=== PATIENT | female | born 1990 | race American Indian/Alaskan Native ===

== ENCOUNTER 2019-04-04 21:51 | Inpatient (IN) | payer OTHER ==
[2019-04-04] MEDS ORDERED: SODIUM CHLORIDE 0.9% 1000 ML IV SOLN IV ONE (22:16)
[2019-04-04] MEDS ORDERED: D5W/0.9% NACL 1,000 ML IV ONE (22:30)
--- NOTE | 2019-04-04 22:38 | Emergency Department Report ---
<MARIOLA ALCANTAR - Last Filed: 04/05/19 04:05> ED General Adult HPI - General Chief complaint: Altered Mental Status Stated complaint: HYPOGLYCEMIA Time Seen by Provider: 04/04/19 22:32 Source: family, EMS Mode of arrival: Wheelchair Limitations: Altered Mental Status - History of Present Illness Initial comments: Ms Godoy is a 28-year-old female who presents via EMS who were called by family for ams after 3 day duration of flu like symptoms, n/v, fever, bodyache, pt blood glucose [id number]/dl [place], increased to 155mg/dl after iv d50w in field. pt states 3 days hx of h/v/d, malaise, cough, generalized bodyache. pt denies med hx , states she feels better now but still unable to tolerate po intake. Onset/Timin -: days(s) Location: head, back, abdomen, upper extremity, lower extremity Severity scale (0 -10): 5 Quality: aching Consistency: constant Improves with: none Worsens with: eating, movement Associated Symptoms: cough, fever/chills, loss of appetite, malaise, nausea/vomiting, weakness Treatments Prior to Arrival: none - Related Data Allergies Allergy/AdvReac Type Severity Reaction Status Date / Time No Known Allergies Allergy Verified 04/04/19 23:08 ED Review of Systems Constitutional: chills, fever, malaise, weakness Eyes: denies: eye pain, eye discharge, vision change ENT: congestion. denies: ear pain, throat pain Respiratory: cough. denies: shortness of breath, wheezing Cardiovascular: denies: chest pain, palpitations Endocrine: no symptoms reported Gastrointestinal: nausea, vomiting, diarrhea. denies: constipation, melena Genitourinary: denies: urgency, dysuria, discharge Musculoskeletal: denies: back pain, joint swelling, arthralgia Skin: denies: rash, lesions Neurological: headache, weakness. denies: numbness, paresthesias, confusion Psychiatric: denies: anxiety, depression Hematological/Lymphatic: denies: easy bleeding, easy bruising ED Past Medical Hx - Social History Smoking Status: Never Smoker ED Physical Exam - General Limitations: Altered Mental Status General appearance: alert - Head Head exam: Present: normal inspection - Eye Eye exam: Present: normal appearance, PERRL, EOMI Pupils: Present: normal accommodation - ENT ENT exam: Present: mucous membranes moist - Neck Neck exam: Present: normal inspection - Respiratory Respiratory exam: Present: normal lung sounds bilaterally. Absent: respiratory distress - Cardiovascular Cardiovascular Exam: Present: normal rhythm, tachycardia, normal heart sounds. Absent: systolic murmur, diastolic murmur, rubs, gallop - GI/Abdominal GI/Abdominal exam: Present: soft, normal bowel sounds. Absent: distended, tenderness, guarding, rebound, rigid, bruit, hernia - Rectal Rectal exam: Present: deferred - External exam: Present: other (deferred ) - Extremities Exam Extremities exam: Present: normal inspection, full ROM, normal capillary refill. Absent: tenderness, pedal edema - Back Exam Back exam: Present: normal inspection, full ROM. Absent: tenderness, CVA tenderness (R), CVA tenderness (L), muscle spasm, vertebral tenderness, rash noted - Neurological Exam Neurological exam: Present: alert, oriented X3, CN II-XII intact, motor sensory deficit, reflexes normal. Absent: normal gait - Psychiatric Psychiatric exam: Present: normal affect, flat affect - Skin Skin exam: Present: warm, dry, intact, normal color. Absent: rash ED Course - Reevaluation(s) Reevaluation #1: h/h 6.7/20.4 pt type and crossmatched will transfuse 2 units of prbc, ct abd pe lvis pending, will admit to hospitalist after ct results or source confirmation. 04/05/19 00:59 ED Medical Decision Making - Lab Data Result diagrams: 04/04/19 23:29 04/04/19 23:29 Labs 04/04/19 04/04/19 04/04/19 22:00 22:19 23:29 WBC 6.0 RBC 3.02 L Hgb 6.4 L Hct 20.7 L MCV 69 L MCH 21 L MCHC 31 RDW 17.4 H Plt Count 253 Lymph % (Auto) 16.7 Drew % (Auto) 12.4 H Eos % (Auto) 3.1 Baso % (Auto) 0.6 Lymph # 1.0 L Drew # 0.7 Eos # 0.2 Baso # 0.0 Seg Neutrophils % 67.2 Seg Neutrophils # 4.0 VBG pH Sodium Potassium Chloride Carbon Dioxide Anion Gap BUN Creatinine Estimated GFR BUN/Creatinine Ratio Glucose POC Glucose 140 H Lactic Acid Calcium Total Bilirubin AST ALT Alkaline Phosphatase Total Protein Albumin Albumin/Globulin Ratio Lipase HCG, Qual Urine Color Urine Turbidity Urine pH Ur Specific Lamar Urine Protein Urine Glucose (UA) Urine Ketones Urine Blood Urine Nitrite Urine Bilirubin Urine Urobilinogen Ur Leukocyte Esterase Urine WBC (Auto) Urine RBC (Auto) U Epithel Cells (Auto) Urine Bacteria (Auto) Hyaline Casts Urine Mucus Urine Opiates Screen Urine Methadone Screen Ur Barbiturates Screen Ur Phencyclidine Scrn Ur Amphetamines Screen U Benzodiazepines Scrn Urine Cocaine Screen U Marijuana (THC) Screen Drugs of Abuse Note Influenza A (Rapid) Negative Influenza B (Rapid) Negative 04/04/19 04/04/19 04/04/19 23:29 23:29 23:29 WBC RBC Hgb Hct MCV MCH MCHC RDW Plt Count Lymph % (Auto) Drew % (Auto) Eos % (Auto) Baso % (Auto) Lymph # Drew # Eos # Baso # Seg Neutrophils % Seg Neutrophils # VBG pH Sodium 134 L Potassium 3.9 Chloride 106.9 Carbon Dioxide 16 L Anion Gap 15 BUN 7 Creatinine 0.6 L Estimated GFR > 60 BUN/Creatinine Ratio 12 Glucose 210 H POC Glucose Lactic Acid 4.60 H* Calcium 7.4 L Total Bilirubin 0.60 AST 74 H ALT 16 Alkaline Phosphatase 58 Total Protein 6.7 Albumin 2.8 L Albumin/Globulin Ratio 0.7 Lipase HCG, Qual Negative Urine Color Urine Turbidity Urine pH Ur Specific Lamar Urine Protein Urine Glucose (UA) Urine Ketones Urine Blood Urine Nitrite Urine Bilirubin Urine Urobilinogen Ur Leukocyte Esterase Urine WBC (Auto) Urine RBC (Auto) U Epithel Cells (Auto) Urine Bacteria (Auto) Hyaline Casts Urine Mucus Urine Opiates Screen Urine Methadone Screen Ur Barbiturates Screen Ur Phencyclidine Scrn Ur Amphetamines Screen U Benzodiazepines Scrn Urine Cocaine Screen U Marijuana (THC) Screen Drugs of Abuse Note Influenza A (Rapid) Influenza B (Rapid) 04/04/19 04/04/19 04/05/19 23:29 23:29 00:05 WBC RBC Hgb Hct MCV MCH MCHC RDW Plt Count Lymph % (Auto) Drew % (Auto) Eos % (Auto) Baso % (Auto) Lymph # Drew # Eos # Baso # Seg Neutrophils % Seg Neutrophils # VBG pH 7.259 L Sodium Potassium Chloride Carbon Dioxide Anion Gap BUN Creatinine Estimated GFR BUN/Creatinine Ratio Glucose POC Glucose 321 H Lactic Acid Calcium Total Bilirubin AST ALT Alkaline Phosphatase Total Protein Albumin Albumin/Globulin Ratio Lipase 19 HCG, Qual Urine Color Urine Turbidity Urine pH Ur Specific Lamar Urine Protein Urine Glucose (UA) Urine Ketones Urine Blood Urine Nitrite Urine Bilirubin Urine Urobilinogen Ur Leukocyte Esterase Urine WBC (Auto) Urine RBC (Auto) U Epithel Cells (Auto) Urine Bacteria (Auto) Hyaline Casts Urine Mucus Urine Opiates Screen Urine Methadone Screen Ur Barbiturates Screen Ur Phencyclidine Scrn Ur Amphetamines Screen U Benzodiazepines Scrn Urine Cocaine Screen U Marijuana (THC) Screen Drugs of Abuse Note Influenza A (Rapid) Influenza B (Rapid) 04/05/19 04/05/19 04/05/19 01:33 02:04 02:04 WBC RBC Hgb Hct MCV MCH MCHC RDW Plt Count Lymph % (Auto) Drew % (Auto) Eos % (Auto) Baso % (Auto) Lymph # Drew # Eos # Baso # Seg Neutrophils % Seg Neutrophils # VBG pH Sodium Potassium Chloride Carbon Dioxide Anion Gap BUN Creatinine Estimated GFR BUN/Creatinine Ratio Glucose POC Glucose Lactic Acid 2.10 H* Calcium Total Bilirubin AST ALT Alkaline Phosphatase Total Protein Albumin Albumin/Globulin Ratio Lipase HCG, Qual Urine Color Yellow Urine Turbidity Slightly-cloudy Urine pH 6.0 Ur Specific Lamar 1.018 Urine Protein 100 mg/dl Urine Glucose (UA) 150 Urine Ketones 20 Urine Blood Lg Urine Nitrite Neg Urine Bilirubin Neg Urine Urobilinogen < 2.0 Ur Leukocyte Esterase Neg Urine WBC (Auto) 2.0 Urine RBC (Auto) 7.0 U Epithel Cells (Auto) < 1.0 Urine Bacteria (Auto) 1+ Hyaline Casts 1 Urine Mucus Few Urine Opiates Screen Presumptive negative Urine Methadone Screen Presumptive negative Ur Barbiturates Screen Presumptive negative Ur Phencyclidine Scrn Presumptive negative Ur Amphetamines Screen Presumptive negative U Benzodiazepines Scrn Presumptive negative Urine Cocaine Screen Presumptive negative U Marijuana (THC) Screen Presumptive positive Drugs of Abuse Note Disclamer Influenza A (Rapid) Influenza B (Rapid) 04/05/19 03:19 WBC RBC Hgb Hct MCV MCH MCHC RDW Plt Count Lymph % (Auto) Drew % (Auto) Eos % (Auto) Baso % (Auto) Lymph # Drew # Eos # Baso # Seg Neutrophils % Seg Neutrophils # VBG pH Sodium Potassium Chloride Carbon Dioxide Anion Gap BUN Creatinine Estimated GFR BUN/Creatinine Ratio Glucose POC Glucose Lactic Acid 1.00 Calcium Total Bilirubin AST ALT Alkaline Phosphatase Total Protein Albumin Albumin/Globulin Ratio Lipase HCG, Qual Urine Color Urine Turbidity Urine pH Ur Specific Lamar Urine Protein Urine Glucose (UA) Urine Ketones Urine Blood Urine Nitrite Urine Bilirubin Urine Urobilinogen Ur Leukocyte Esterase Urine WBC (Auto) Urine RBC (Auto) U Epithel Cells (Auto) Urine Bacteria (Auto) Hyaline Casts Urine Mucus Urine Opiates Screen Urine Methadone Screen Ur Barbiturates Screen Ur Phencyclidine Scrn Ur Amphetamines Screen U Benzodiazepines Scrn Urine Cocaine Screen U Marijuana (THC) Screen Drugs of Abuse Note Influenza A (Rapid) Influenza B (Rapid) - Medical Decision Making pt condition is improved, mild lethargy,reponds to verbal stimuli, ct head: normal, ct abd pelvis :cannot rule out choleycysitis, recommend US RUQ, ordered and pending, cxr: normal no infiltrates no opacities, labs h/h: 6.4/20.7: pt pending completion of blood transfusion of 2 units prbc, wbc are normal, abg: co2 7.25, cmp: glucose : 142, UA: normal , lactic acid: initial 4.60, repeat 2.4, and now 1.0, pt fever: 102.5 after tylenol, and ivfs. ressucitaiton fluids competed + 1 additional leader. will maintain ivfs at 150 cc /hr pt for LP via ED attending , consulted hospitalist, recommend call back after LP and ID consult. ID consuled,. pt care hand off to Dr Mancia. ED Disposition Clinical Impression: Hypoglycemia Fever Qualifiers: Fever type: unspecified Qualified Code(s): R50.9 - Fever, unspecified Altered mental state Qualifiers: Altered mental status type: unspecified Qualified Code(s): R41.82 - Altered mental status, unspecified Sepsis Qualifiers: Sepsis type: sepsis due to unspecified organism Sepsis acute organ dysfunction status: without acute organ dysfunction Qualified Code(s): A41.9 - Sepsis, unspecified organism Hypotension Qualifiers: Hypotension type: unspecified hypotension type Qualified Code(s): I95.9 - Hypotension, unspecified Anemia Qualifiers: Anemia type: unspecified type Qualified Code(s): D64.9 - Anemia, unspecified Disposition: OP ADMIT IP TO THIS HOSP Condition: Critical <RAFEEDMACIE III,ZUHAIR Silver - Last Filed: 04/05/19 22:45> ED Review of Systems ROS: Stated complaint: HYPOGLYCEMIA Other details as noted in HPI ED Past Medical Hx - Past Medical History Previous Medical History?: No - Surgical History Past Surgical History?: No - Family History Family history: no significant - Social History Smoking Status: Never Smoker Substance Use Type: Marijuana ED Course Vital Signs 04/04/19 04/04/19 04/04/19 22:12 22:13 23:28 Temperature 103 F H Pulse Rate 131 H Respiratory 22 Rate Blood Pressure 55/39 Blood Pressure 120/78 [Left] O2 Sat by Pulse 100 100 Oximetry 04/04/19 04/04/19 04/05/19 23:30 23:59 00:00 Temperature Pulse Rate 115 H 113 H Respiratory 20 17 Rate Blood Pressure 112/46 Blood Pressure [Left] O2 Sat by Pulse 100 100 100 Oximetry 04/05/19 04/05/19 04/05/19 00:01 00:10 00:30 Temperature 103.0 F H Pulse Rate 113 H 112 H Respiratory 20 23 Rate Blood Pressure 112/46 110/64 Blood Pressure [Left] O2 Sat by Pulse 100 100 Oximetry 04/05/19 04/05/19 04/05/19 01:00 01:30 02:00 Temperature Pulse Rate 107 H Respiratory 21 Rate Blood Pressure 108/62 110/61 103/62 Blood Pressure [Left] O2 Sat by Pulse 100 99 Oximetry 04/05/19 04/05/19 04/05/19 02:05 02:30 03:00 Temperature Pulse Rate 104 H 100 H Respiratory 15 Rate Blood Pressure 99/59 102/66 Blood Pressure [Left] O2 Sat by Pulse 98 100 Oximetry 04/05/19 04/05/19 04/05/19 03:24 04:15 04:30 Temperature 100.3 F H Pulse Rate 103 H 100 H Respiratory 9 L Rate Blood Pressure 103/61 100/61 Blood Pressure [Left] O2 Sat by Pulse 100 Oximetry 04/05/19 04/05/19 04/05/19 05:00 05:30 06:00 Temperature Pulse Rate 109 H 104 H 106 H Respiratory 21 23 25 H Rate Blood Pressure 104/62 101/59 109/65 Blood Pressure [Left] O2 Sat by Pulse 99 100 Oximetry 04/05/19 04/05/1919 06:30 07:00 07:11 Temperature Pulse Rate 104 H 108 H 109 H Respiratory 28 H 19 23 Rate Blood Pressure 102/62 104/62 104/62 Blood Pressure [Left] O2 Sat by Pulse 100 Oximetry 04/05/19 04/05/19 04/05/19 07:21 07:31 07:41 Temperature Pulse Rate 106 H Respiratory 21 25 H Rate Blood Pressure 104/62 108/57 108/57 Blood Pressure [Left] O2 Sat by Pulse 100 98 100 Oximetry 04/05/19 04/05/19 04/05/19 07:51 08:00 08:09 Temperature 99.4 F Pulse Rate 105 H 105 H 107 H Respiratory 20 18 17 Rate Blood Pressure 108/57 111/74 Blood Pressure 108/57 [Left] O2 Sat by Pulse 100 100 98 Oximetry 04/05/19 04/05/19 04/05/19 08:11 08:21 08:30 Temperature Pulse Rate 104 H 105 H Respiratory 21 28 H 16 Rate Blood Pressure 111/74 111/74 101/64 Blood Pressure [Left] O2 Sat by Pulse 100 100 100 Oximetry 04/05/19 04/05/19 04/05/19 08:41 08:51 09:00 Temperature Pulse Rate 109 H 111 H 105 H Respiratory 19 19 26 H Rate Blood Pressure 101/64 101/64 101/62 Blood Pressure [Left] O2 Sat by Pulse 100 99 100 Oximetry 04/05/19 04/05/19 04/05/19 09:11 09:21 09:30 Temperature Pulse Rate 104 H 104 H 101 H Respiratory 20 25 H 19 Rate Blood Pressure 101/62 101/64 98/65 Blood Pressure [Left] O2 Sat by Pulse 100 100 Oximetry 04/05/19 04/05/19 04/05/19 09:41 09:51 10:00 Temperature Pulse Rate 105 H 102 H Respiratory 13 20 Rate Blood Pressure 98/65 98/65 98/65 Blood Pressure [Left] O2 Sat by Pulse 96 97 97 Oximetry 04/05/19 10:26 Temperature 98.9 F Pulse Rate 100 H Respiratory 12 Rate Blood Pressure 83/46 Blood Pressure [Left] O2 Sat by Pulse 100 Oximetry - Reevaluation(s) Reevaluation #2: Due to the patient's symptoms, Patient currently has a fever of unknown origin as well as altered mental status, patient will require a LP. Consent received from the patient's mother. LP done without complications. See procedure note. I examined the patient. Patient is altered. 04/05/19 03:00 - Consultations Consultation #1: Hospitalist consult for admission. Hospitalist admit patient. 04/05/19 04:05 Consultation #2: ID consult. This case with Dr. Jennings. Dr. Jennings agrees with admission and that the LP was done. Dr. Jennings recommends ceftriaxone 2 g IV every 12, vancomycin 1 g IV every 12 and acyclovir 10 mg/kg IV every 8. 04/05/19 04:17 - Lumbar Puncture Consent Obtained: verbal consent, written consent, emergent situation Time Out Performed: Yes Indication for Procedure: fever work up, change in mental status Patient Position: left lateral decubitus Skin Prep: Povidone-Iodine 1% Local Anesthetic Used: Lidocaine 1% Spinal Needle Gauge: 20G Spinal Needle Length: 3.5in Interspace Used: L4-L5 Opening Pressure (cmH20): 6 Fluid Initially Obtained: clear Complications: none Patient Tolerated Procedure: well, no complications Additional Comments: lp done without complication. clear fluid with opening pressure of 6. pt will remain flat for 30 minutes. pressure applied to site. sterile bandage applied. ED Medical Decision Making - Lab Data Result diagrams: 04/04/19 23:29 04/04/19 23:29 - Radiology Data Radiology results: report reviewed, image reviewed No acute findings on abdominal CT except for fluid around the gallbladder. Head CT negative for acute findings. CT HEAD WITHOUT CONTRAST INDICATION : Altered mental status. TECHNIQUE: Axial, coronal and sagittal CT imaging was performed from the skull apex through the skull base without contrast. All CT scans at this location are performed using CT dose reduction for ALARA by means of automated exposure control. COMPARISON: None available. FINDINGS: PARENCHYMA: No mass, midline shift, hemorrhage, extraaxial collection or acute territorial infarction. VENTRICLES: Symmetric and normal in size. SOFT TISSUES: Soft tissues including the orbits appear normal. BONES: No acute osseous abnormality. SINUSES: Generalized because thickening is seen throughout the sinuses, especially along the ethmoid air cells and the nasal cavity. There is underdevelopment of the frontal sinuses. ADDITIONAL FINDINGS: None. IMPRESSION: 1. No acute intracranial abnormality. 2. Additional findings as above. ULTRASOUND ABDOMEN, LIMITED (RIGHT UPPER QUADRANT) INDICATION: Right upper quadrant pain. Possible cholecystitis. Previous abnormal CT of the abdomen and pelvis. COMPARISON: CT abdomen and pelvis with contrast from earlier today. FINDINGS: Pancreas: Visualized portion shows no significant abnormality. Liver: No significant abnormality. Gallbladder: No significant abnormality. Sonographic Beck's sign: Negative. Bile ducts: No significant abnormality. Common Bile Duct measures 3 mm. Free fluid: None. Additional Findings: None. IMPRESSION: 1. No sonographic abnormality of the right upper quadrant. CT ABDOMEN AND PELVIS WITH CONTRAST INDICATION: Altered mental status. Abdominal pain. COMPARISON: No relevant prior imaging study available. TECHNIQUE: Axial, coronal and sagittal CT imaging of the abdomen and pelvis was performed after injection of 100 mL Omnipaque [address] scans at this location are performed using CT dose reduction for ALARA by means of automated exposure control. FINDINGS: LOWER CHEST: There is probable bibasilar atelectasis. No additional significant abnormality. LIVER: No significant abnormality. BILIARY: There is a questionable small amount of pericholecystic fluid without visualization of stones or other evidence of acute cholecystitis. No biliary ductal dilatation. PANCREAS: No significant abnormality. SPLEEN: No significant abnormality. ADRENALS: No significant abnormality. KIDNEYS AND URETERS: No significant abnormality. GI TRACT: No significant abnormality of the stomach, small bowel or colon. Unremarkable appendix. PERITONEUM: No free fluid. No free air. No fluid collection. LYMPH NODES: No significant adenopathy. VASCULATURE: No significant abnormality. URINARY BLADDER: No significant abnormality. REPRODUCTIVE ORGANS: No significant abnormality. ADDITIONAL FINDINGS: None. SKELETAL SYSTEM: No significant abnormality. IMPRESSION: 1. Questionable small amount of pericholecystic fluid without visualization of gallstones or additional CT evidence of acute cholecystitis. 2. No other acute abnormality of the abdomen or pelvis. - Differential Diagnosis fever, altered mental status, meningitis, sepsis, hypotension Critical Care Time: Yes Critical care time in (mins) excluding proc time.: 65 Critical care attestation.: If time is entered above; I have spent that time in minutes in the direct care of this critically ill patient, excluding procedure time. Critical Care Time: 65 minutes ED Disposition Is pt being admited?: Yes Does the pt Need Aspirin: No Time of Disposition: 04:22
[2019-04-04] MEDS ORDERED: ONDANSETRON 4 MG/2 ML INJ IV ONE (22:50)
[2019-04-04] MEDS ORDERED: ACETAMINOPHEN 500 MG TAB ONE (22:53)
[2019-04-04] MEDS ORDERED: D5W/0.9% NACL 1,000 ML IV SCH (23:00)
[2019-04-04] MEDS: ACETAMINOPHEN 325 MG TAB PO ONE (23:06)
[2019-04-04] MEDS ORDERED: LIDOCAINE-MPF (1%) 10 MG/1 ML VIAL 5 ML INFILTRATI ONE (23:34)
[2019-04-05 00:13] LABS: Basophils % (Auto) 0.6 % (0.0-1.8); Eosinophils # (Auto) 0.2 K/mm3 (0.0-0.4); Eosinophils % (Auto) 3.1 % (0.0-4.3); Hematocrit 20.7 % (30.3-42.9); Hemoglobin 6.4 gm/dl (10.1-14.3); Lymphocytes % (Auto) 16.7 % (13.4-35.0); Mean Corpuscular HGB Conc 31 % (30-34); Monocytes # (Auto) 0.7 K/mm3 (0.0-0.8); Monocytes % (Auto) 12.4 % (0.0-7.3); Platelet Count 253 K/mm3 (140-440); Red Blood Count 3.02 M/mm3 (3.65-5.03); Red Cell Distribution Width 17.4 % (13.2-15.2)
[2019-04-05 00:14] LABS: Alanine Aminotransferase 16 units/L (7-56); Albumin 2.8 g/dL (3.9-5); BUN/Creatinine Ratio 12; Blood Urea Nitrogen 7 mg/dL (7-17); Calcium 7.4 mg/dL (8.4-10.2); Hemolysis Index 0
[2019-04-05] MEDS ORDERED: SODIUM CHLORIDE 0.9% 1000 ML 1,000 ML IV ONE (00:31)
[2019-04-05 00:35] LABS: Mean Corpuscular Volume 69 fl (79-97)
--- NOTE | 2019-04-05 00:46 | XRay Report ---
CHEST 1 VIEW 04/05/2019 12:10 AM INDICATION / CLINICAL INFORMATION: fever, hypotension. COMPARISON: None available. FINDINGS: SUPPORT DEVICES: None. HEART / MEDIASTINUM: No significant abnormality. LUNGS / PLEURA: No significant pulmonary or pleural abnormality. No pneumothorax. ADDITIONAL FINDINGS: No significant additional findings. IMPRESSION: 1. No acute abnormality of the chest. Signer Name: Weston Levine MD Signed: 04/05/2019 12:42 AM Workstation Name: [id number]
[2019-04-05] MEDS ORDERED: SODIUM CHLORIDE 0.9% 500 ML 500 ML IV ONE ×2 (00:56→12:00)
[2019-04-05] MEDS ORDERED: diphenhydrAMINE 50 MG/ML VIAL IV ONE (00:58)
--- NOTE | 2019-04-05 02:00 | Cat Scan Report ---
CT HEAD WITHOUT CONTRAST INDICATION : Altered mental status. TECHNIQUE: Axial, coronal and sagittal CT imaging was performed from the skull apex through the skul l base without contrast. All CT scans at this location are performed using CT dose reduction for ALA RA by means of automated exposure control. COMPARISON: None available. FINDINGS: PARENCHYMA: No mass, midline shift, hemorrhage, extraaxial collection or acute territorial infarctio n. VENTRICLES: Symmetric and normal in size. SOFT TISSUES: Soft tissues including the orbits appear normal. BONES: No acute osseous abnormality. SINUSES: Generalized because thickening is seen throughout the sinuses, especially along the ethmoid air cells and the nasal cavity. There is underdevelopment of the frontal sinuses. ADDITIONAL FINDINGS: None. IMPRESSION: 1. No acute intracranial abnormality. 2. Additional findings as above. Signer Name: Weston Levine MD Signed: 04/05/2019 1:55 AM Workstation Name: [id number]
--- NOTE | 2019-04-05 02:05 | Cat Scan Report ---
CT ABDOMEN AND PELVIS WITH CONTRAST INDICATION: Altered mental status. Abdominal pain. COMPARISON: No relevant prior imaging study available. TECHNIQUE: Axial, coronal and sagittal CT imaging of the abdomen and pelvis was performed after inje ction of 100 mL Omnipaque [address] scans at this location are performed using CT dose re duction for ALARA by means of automated exposure control. FINDINGS: LOWER CHEST: There is probable bibasilar atelectasis. No additional significant abnormality. LIVER: No significant abnormality. BILIARY: There is a questionable small amount of pericholecystic fluid without visualization of stone s or other evidence of acute cholecystitis. No biliary ductal dilatation. PANCREAS: No significant abnormality. SPLEEN: No significant abnormality. ADRENALS: No significant abnormality. KIDNEYS AND URETERS: No significant abnormality. GI TRACT: No significant abnormality of the stomach, small bowel or colon. Unremarkable appendix. PERITONEUM: No free fluid. No free air. No fluid collection. LYMPH NODES: No significant adenopathy. VASCULATURE: No significant abnormality. URINARY BLADDER: No significant abnormality. REPRODUCTIVE ORGANS: No significant abnormality. ADDITIONAL FINDINGS: None. SKELETAL SYSTEM: No significant abnormality. IMPRESSION: 1. Questionable small amount of pericholecystic fluid without visualization of gallstones or addition al CT evidence of acute cholecystitis. 2. No other acute abnormality of the abdomen or pelvis. Signer Name: Weston Levine MD Signed: 04/05/2019 2:01 AM Workstation Name: [id number]
[2019-04-05 03:17] LABS: Amphetamine Screen,Urine PRESUMPTIVE NEGATIVE; Benzodiazepines Screen,Urine PRESUMPTIVE NEGATIVE; Cocaine Screen,Urine PRESUMPTIVE NEGATIVE; Methadone Screen,Urine PRESUMPTIVE NEGATIVE; Opiate Screen,Urine PRESUMPTIVE NEGATIVE
[2019-04-05 03:18] LABS: Bacteria,Urine 1+ /HPF (Negative); Bilirubin,Urine NEG (Negative); Blood,Urine LG (Negative); Color,Urine Yellow (Yellow); Hyaline Casts,Urine 1 /LPF; Mucus,Urine FEW /HPF; Urobilinogen,Urine < 2.0 mg/dL (<2.0)
[2019-04-05 03:42] LABS: Cannabinoid Screen,Urine PRESUMPTIVE POSITIVE
[2019-04-05] MEDS ORDERED: VANCOMYCIN/NS 1 GM/250 ML 1 GM/250 ML BAG IV ONE (04:20)
[2019-04-05] MEDS ORDERED: ONDANSETRON 4 MG/2 ML INJ ONE (05:14)
[2019-04-05 05:48] LABS: Glucose,CSF 69 mg/dL
[2019-04-05 06:40] LABS: Appearance,CSF Clear
[2019-04-05 06:44] LABS: Total Cells Counted 33 /mm3
[2019-04-05 06:45] LABS: Basophils CSF 0 %; Red Blood Cell,CSF 41 /mm3 (0-0); White Blood Cell,CSF 14 /mm3 (1-10)
[2019-04-05] MEDS: ACYCLOVIR IV SCH ×3 (06:48→21:06)
[2019-04-05] MEDS: SODIUM CHLORIDE 0.9% IV SCH ×3 (06:48→21:06)
--- NOTE | 2019-04-05 07:16 | Ultrasound Report ---
ULTRASOUND ABDOMEN, LIMITED (RIGHT UPPER QUADRANT) INDICATION: Right upper quadrant pain. Possible cholecystitis. Previous abnormal CT of the abdomen and pelvis. COMPARISON: CT abdomen and pelvis with contrast from earlier today. FINDINGS: Pancreas: Visualized portion shows no significant abnormality. Liver: No significant abnormality. Gallbladder: No significant abnormality. Sonographic Beck's sign: Negative. Bile ducts: No significant abnormality. Common Bile Duct measures 3 mm. Free fluid: None. Additional Findings: None. IMPRESSION: 1. No sonographic abnormality of the right upper quadrant. Signer Name: Weston Levine MD Signed: 04/05/2019 7:12 AM Workstation Name: [email or web address]
[2019-04-05] MEDS ORDERED: DEXTROSE 50% IN WATER (25GM) 50 ML SYRINGE IV ONE ×2 (08:37→08:40)
--- NOTE | 2019-04-05 08:39 | Emergency Department Report ---
Blank Doc - Documentation Documentation: Nurse reports the patient's blood sugars 48. Provider ordered at 1 amp of D50 and to recheck blood sugar
[2019-04-05] MEDS ORDERED: ONDANSETRON 4 MG/2 ML INJ IV PRN (09:29)
[2019-04-05] MEDS ORDERED: oxyCODONE /ACETAMINOPHEN 5-325MG TAB PO PRN (09:29)
[2019-04-05] MEDS ORDERED: SODIUM CHLORIDE 0.9% 1000 ML 1,000 ML IV SCH (09:30)
[2019-04-05] MEDS ORDERED: DEXTROSE 50% IN WATER (25GM) 50 ML SYRINGE IV PRN (09:39)
[2019-04-05] MEDS ORDERED: cefTRIAXone/NS 2 GM/100 ML 2 GM/100 ML BAG IV SCH (10:00)
[2019-04-05] MEDS ORDERED: VANCOMYCIN PHARMACY TO DOSE IV SCH (10:00)
[2019-04-05] MEDS ORDERED: cefTRIAXone/NS 1 GM/50 ML IVPB IV ONE (11:00)
[2019-04-05] MEDS ORDERED: INSULIN LISPRO 100 UNIT/ML SUB-Q SCH (11:30)
--- NOTE | 2019-04-05 11:52 | History and Physical Report ---
History of Present Illness Date of examination: 04/05/19 Date of admission: 04/05/19 07:51 Chief complaint: AMS per mother History of present illness: Ms Godoy is a 28-year-old female who presented to the ED via EMS for ams after 3 days h/o of flu like symptoms. Pt was unable to provide hx due to AMS, so hx was obtained from the mother. It was reported that she has been having n/v, fever with chills, poor oral intake and generalized weakness with bodyaches for 3 days. Per EMS, her blood glucose [id number] on arrival and increased to 155mg/dl after iv d50w was given. Of note, the mother reported that she usually has heavy periods and she's currently menstruating. Past History Past Medical History: No medical history Past Surgical History: No surgical history Social history: no significant social history (negative for tobacco, alcohol or illicit drug use) Family history: hypertension (parents) Medications and Allergies Allergies Allergy/AdvReac Type Severity Reaction Status Date / Time No Known Allergies Allergy Verified 04/04/19 23:08 Active Meds: Active Medications Acetaminophen (Tylenol) 650 mg PO Q4H PRN PRN Reason: Pain MILD(1-3)/Fever >100.5/INMAN Dextrose (D50w (25gm) Syringe) 50 ml IV Q30MIN PRN; Protocol PRN Reason: Hypoglycemia Acyclovir 540 mg/ Sodium (Chloride) 110.8 mls @ 100 mls/hr IV Q8HR RABIA; Protocol Last Admin: 04/05/19 06:48 Dose: 100 mls/hr Documented by: Sodium Chloride (Nacl 0.9% 1000 Ml) 1,000 mls @ 125 mls/hr IV DIRECT RABIA Ceftriaxone Sodium (Rocephin/Ns 2 Gm/100 Ml) 2 gm in 100 mls @ 200 mls/hr IV DAILY RABIA; Protocol Vancomycin HCl (Vancomycin/Ns 1 Gm/250 Ml) 1 gm in 250 mls @ 166.667 mls/hr IV Q12H RABIA Sodium Chloride (Nacl 0.9% 500 Ml) 500 mls @ 0 mls/hr IV ONCE ONE Stop: 04/05/19 12:01 Insulin Human Lispro (Humalog) 0 unit SUB-Q ACHS RABIA; Protocol Ondansetron HCl (Zofran) 4 mg IV Q8H PRN PRN Reason: Nausea And Vomiting Oxycodone/Acetaminophen (Percocet 5/325) 1 tab PO Q6H PRN PRN Reason: Pain, Moderate (4-6) Sodium Chloride (Sodium Chloride Flush Syringe 10 Ml) 10 ml IV BID RABIA Sodium Chloride (Sodium Chloride Flush Syringe 10 Ml) 10 ml IV PRN PRN PRN Reason: LINE FLUSH Review of Systems ROS unobtainable: due to mental status Exam - Constitutional Vitals: Temp Pulse Resp BP Pulse Ox 98.9 F 107 H 12 102/64 98 04/05/19 10:26 04/05/19 10:34 04/05/19 10:26 04/05/19 10:34 04/05/19 10:34 General appearance: Present: no acute distress, other (ill-looking) - EENT Eyes: Present: PERRL, EOM intact ENT: hearing intact, other (dry buccal mucosa) - Neck Neck: Present: supple - Respiratory Respiratory effort: normal Respiratory: bilateral: CTA - Cardiovascular Rhythm: regular (with tachycardia) Heart Sounds: Present: S1 & S2 - Extremities Extremities: No edema - Abdominal General gastrointestinal: Present: soft, non-tender, non-distended, normal bowel sounds Female genitourinary: Present: deferred - Rectal Rectal Exam: deferred - Integumentary Integumentary: Present: pale - Musculoskeletal Musculoskeletal: generalized weakness - Psychiatric Psychiatric: cooperative - Neurologic Neurologic: moves all extremities, other (barely responsive) Results - Labs CBC & Chem 7: 04/04/19 23:29 04/04/19 23:29 Labs: Laboratory Last Values WBC 6.0 K/mm3 (4.5-11.0) 04/04/19 23:29 RBC 3.02 M/mm3 (3.65-5.03) L 04/04/19 23:29 Hgb 6.4 gm/dl (10.1-14.3) L 04/04/19 23:29 Hct 20.7 % (30.3-42.9) L 04/04/19 23:29 MCV 69 fl (79-97) L 04/04/19 23:29 MCH 21 pg (28-32) L 04/04/19 23:29 MCHC 31 % (30-34) 04/04/19 23:29 RDW 17.4 % (13.2-15.2) H 04/04/19 23:29 Plt Count 253 K/mm3 (140-440) 04/04/19 23:29 Lymph % (Auto) 16.7 % (13.4-35.0) 04/04/19 23:29 [place] % (Auto) 12.4 % (0.0-7.3) H 04/04/19 23:29 Eos % (Auto) 3.1 % (0.0-4.3) 04/04/19 23:29 Baso % (Auto) 0.6 % (0.0-1.8) 04/04/19 23: Lymph # 1.0 K/mm3 (1.2-5.4) L 04/04/19 23:29 [place] # 0.7 K/mm3 (0.0-0.8) 04/04/19 23:29 Eos # 0.2 K/mm3 (0.0-0.4) 04/04/19 23:29 Baso # 0.0 K/mm3 (0.0-0.1) 04/04/19 23:29 Seg Neutrophils % 67.2 % (40.0-70.0) 04/04/19 23:29 Seg Neutrophils # 4.0 K/mm3 (1.8-7.7) 04/04/19 23:29 VBG pH 7.259 (7.320-7.420) L 04/04/19 23:29 Sodium 134 mmol/L (137-145) L 04/04/19 23:29 Potassium 3.9 mmol/L (3.6-5.0) 04/04/19 23:29 Chloride 106.9 mmol/L (98-107) 04/04/19 23:29 Carbon Dioxide 16 mmol/L (22-30) L 04/04/19 23:29 Anion Gap 15 mmol/L 04/04/19 23:29 BUN 7 mg/dL (7-17) 04/04/19 23:29 Creatinine 0.6 mg/dL (0.7-1.2) L 04/04/19 23:29 Estimated GFR > 60 ml/min 04/04/19 23:29 BUN/Creatinine Ratio 12 % 04/04/19 23:29 Glucose 210 mg/dL (65-100) H 04/04/19 23:29 POC Glucose 82 (70-105) 04/05/19 11:51 Lactic Acid 1.00 mmol/L (0.7-2.0) 04/05/19 03:19 Calcium 7.4 mg/dL (8.4-10.2) L 04/04/19 23:29 Total Bilirubin 0.60 mg/dL (0.1-1.2) 04/04/19 23:29 AST 74 units/L (5-40) H 04/04/19 23:29 ALT 16 units/L (7-56) 04/04/19 23:29 Alkaline Phosphatase 58 units/L (35-129) 04/04/19 23:29 Total Protein 6.7 g/dL (6.3-8.2) 04/04/19 23:29 Albumin 2.8 g/dL (3.9-5) L 04/04/19 23:29 Albumin/Globulin Ratio 0.7 % 04/04/19 23:29 Lipase 19 units/L (13-60) 04/04/19 23:29 HCG, Qual Negative (Negative) 04/04/19 23:29 Urine Color Yellow (Yellow) 04/05/19 02:04 Urine Turbidity Slightly-cloudy (Clear) 04/05/19 02:04 Urine pH 6.0 (5.0-7.0) 04/05/19 02:04 Ur Specific [place] 1.018 (1.003-1.030) 04/05/19 02:04 Urine Protein 100 mg/dl mg/dL (Negative) 04/05/19 02:04 Urine Glucose (UA) 150 mg/dL (Negative) 04/05/19 02:04 Urine Ketones 20 mg/dL (Negative) 04/05/19 02:04 Urine Blood Lg (Negative) 04/05/19 02:04 Urine Nitrite Neg (Negative) 04/05/19 02:04 Urine Bilirubin Neg (Negative) 04/05/19 02:04 Urine Urobilinogen < 2.0 mg/dL (<2.0) 04/05/19 02:04 Ur Leukocyte Esterase Neg (Negative) 04/05/19 02:04 Urine WBC (Auto) 2.0 /HPF (0.0-6.0) 04/05/19 02:04 Urine RBC (Auto) 7.0 /HPF (0.0-6.0) 04/05/19 02:04 U Epithel Cells (Auto) < 1.0 /HPF (0-13.0) 04/05/19 02:04 Urine Bacteria (Auto) 1+ /HPF (Negative) 04/05/19 02:04 Hyaline Casts 1 /LPF 04/05/19 02:04 Urine Mucus Few /HPF 04/05/19 02:04 CSF Appearance Clear 04/05/19 04:15 CSF Color Colorless 04/05/19 04:15 CSF WBC 14 /mm3 (1-10) 04/05/19 04:15 CSF RBC 41 /mm3 (0-0) 04/05/19 04:15 CSF Seg Neutrophils 60.6 % (0-6) 04/05/19 04:15 CSF Lymphocytes % 36.4 % (40-80) 04/05/19 04:15 CSF Reactive Lymphs 0 % 04/05/19 04:15 CSF Monocytes % 0 % (15-45) 04/05/19 04:15 CSF Eosinophils % 3.0 % 04/05/19 04:15 CSF Basophils 0 % 04/05/19 04:15 CSF Pathologist Review C 04/05/19 04:15 CSF Glucose 69 mg/dL 04/05/19 04:15 CSF Total Protein 52 mg/dL 04/05/19 04:15 Urine Opiates Screen Presumptive negative 04/05/19 02:04 Urine Methadone Screen Presumptive negative 04/05/19 02:04 Ur Barbiturates Screen Presumptive negative 04/05/19 02:04 Ur Phencyclidine Scrn Presumptive negative 04/05/19 02:04 Ur Amphetamines Screen Presumptive negative 04/05/19 02:04 U Benzodiazepines Scrn Presumptive negative 04/05/19 02:04 Urine Cocaine Screen Presumptive negative 04/05/19 02:04 U Marijuana (THC) Screen Presumptive positive 04/05/19 02:04 Drugs of Abuse Note Disclamer 04/05/19 02:04 Enterovirus (PCR) Cmmt 04/05/19 04:15 HIV 1&2 Antibody Rapid Non react (Non React) 04/05/19 06:00 HIV P24 Antigen Non react (Non React) 04/05/19 06:00 Influenza A (Rapid) Negative (Negative) 04/04/19 22:00 Influenza B (Rapid) Negative (Negative) 04/04/19 22:00 Blood Type O POSITIVE 04/05/19 01:33 Antibody Screen Negative 04/05/19 01:33 Crossmatch See Detail 04/05/19 01:33 Assessment and Plan Assessment and plan: SIRS evidenced by T: 103F, HR>90 and RR>20 with AMS -exact source of inf unknown -s/p LP: CSF analysis not indicative of bacterial inf -on IV antibiotics with Rocephin and Vanc -on IV acyclovir for possible HSV inf -CXR neg -ua neg. Blood cultures pending. HIV screen neg, PCR test pending -CSF viral panel pending -ID consulted Acute metabolic encephalopathy -probably 2/2 underlying inf -head CT scan neg -drug screen positive for marijuana Lactic acidosis -probably 2/2 acute process -s/p IVF boluses, level trended down Acute blood loss anemia -pt to receive 2u of prbcs today -will monitor H/H -pt has h/o menorrhagia -CT abd/pelvis neg for acute findings -for out-pt gynecology f/u Hypotension -probably 2/2 to dehydration -BP responsive to IVF boluses -cont maint IVF and monitor BP Mild hyponatremia -on IVF, wll monitor level Metabolic acidosis -on IVF, will monitor Hypoglycemia -on hypoglycemic protocol -f/u hba1c level Hypoalbuminemia -nutrition consulted DVT ppx: SCD Disp: pt admitted to inpt status Time spent: 40 mins
[2019-04-05] MEDS: ACETAMINOPHEN 325 MG TAB PO PRN (14:00)
[2019-04-05] MEDS: D5W/0.9% NACL 1,000 ML IV SCH (15:58)
[2019-04-05] MEDS: VANCOMYCIN/NS 1 GM/250 ML 1 GM/250 ML BAG IV SCH (17:53)
[2019-04-06] MEDS: ACETAMINOPHEN 325 MG TAB PO PRN (00:29)
[2019-04-06] MEDS: VANCOMYCIN/NS 1 GM/250 ML 1 GM/250 ML BAG IV SCH (04:17)
[2019-04-06] MEDS: ACYCLOVIR IV SCH ×3 (05:43→22:18)
[2019-04-06] MEDS: SODIUM CHLORIDE 0.9% IV SCH ×3 (05:43→22:18)
[2019-04-06 07:32] LABS: Basophils % (Auto) 0.6 % (0.0-1.8); Eosinophils # (Auto) 0.4 K/mm3 (0.0-0.4); Eosinophils % (Auto) 7.7 % (0.0-4.3); Hematocrit 26.4 % (30.3-42.9); Hemoglobin 8.6 gm/dl (10.1-14.3); Lymphocytes # (Auto) 0.8 K/mm3 (1.2-5.4); Lymphocytes % (Auto) 14.3 % (13.4-35.0); Mean Corpuscular HGB Conc 33 % (30-34); Mean Corpuscular Volume 73 fl (79-97); Monocytes # (Auto) 0.7 K/mm3 (0.0-0.8); Monocytes % (Auto) 12.7 % (0.0-7.3); Platelet Count 257 K/mm3 (140-440); Red Blood Count 3.61 M/mm3 (3.65-5.03)
[2019-04-06 07:50] LABS: Red Cell Distribution Width 22.4 % (13.2-15.2)
[2019-04-06 07:53] LABS: BUN/Creatinine Ratio 4; Blood Urea Nitrogen 2 mg/dL (7-17); Calcium 7.4 mg/dL (8.4-10.2); Hemolysis Index 2
--- NOTE | 2019-04-06 08:16 | Progress Note ---
Assessment and Plan Assessment and plan: AMS per mother History of present illness: Ms Godoy is a 28-year-old female who presented to the ED via EMS for ams after 3 days h/o of flu like symptoms. Pt was unable to provide hx due to AMS, so hx was obtained from the mother. It was reported that she has been having n/v, fever with chills, poor oral intake and generalized weakness with bodyaches for 3 days. Per EMS, her blood glucose [id number]/dl on arrival and increased to 155mg/dl after iv d50w was given. Of note, the mother reported that she usually has heavy periods and she's currently menstruating. SIRS evidenced by T: 103F, HR>90 and RR>20 with AMS -exact source of inf unknown -s/p LP: CSF analysis not indicative of bacterial inf -on IV antibiotics with Rocephin and Vanc -on IV acyclovir for possible HSV inf -CXR neg -ua neg. Blood cultures pending. HIV screen neg, PCR test pending -CSF viral panel pending -ID consulted Acute metabolic encephalopathy -probably 2/2 underlying inf -head CT scan neg -drug screen positive for marijuana Lactic acidosis -probably 2/2 acute process -s/p IVF boluses, level trended down Acute blood loss anemia -pt to receive 2u of prbcs today -will monitor H/H -pt has h/o menorrhagia -CT abd/pelvis neg for acute findings -for out-pt gynecology f/u Hypotension -probably 2/2 to dehydration -BP responsive to IVF boluses -cont maint IVF and monitor BP Mild hyponatremia -on IVF, wll monitor level Metabolic acidosis -on IVF, will monitor Hypoglycemia -on hypoglycemic protocol -f/u hba1c level Hypoalbuminemia -nutrition consulted DVT ppx: SCD Disp: pt admitted to inpt status Time spent: 40 mins History Interval history: Complains of generalized weakness Review of systems Constitutional: No fevers, , no joint pains CVS: No chest pain, no orthopnea, no pedal edema GI: No abdominal pain, no diarrhea, no vomiting, no constipation Respiratory: , no wheezing, no coughing Hospitalist Physical - Physical exam Narrative exam: General appearance: Present: no acute distress, other (ill-looking) - EENT Eyes: Present: PERRL, EOM intact ENT: hearing intact, other (dry buccal mucosa) - Neck Neck: Present: supple - Respiratory Respiratory effort: normal Respiratory: bilateral: CTA - Cardiovascular Rhythm: regular (with tachycardia) Heart Sounds: Present: S1 & S2 - Extremities Extremities: No edema - Abdominal General gastrointestinal: Present: soft, non-tender, non-distended, normal bowel sounds Female genitourinary: Present: deferred - Rectal Rectal Exam: deferred - Integumentary Integumentary: Present: pale - Musculoskeletal Musculoskeletal: generalized weakness - Psychiatric Psychiatric: cooperative - Neurologic Neurologic: moves all extremities, other (barely responsive) - Constitutional Vitals: Temp Pulse Resp BP Pulse Ox 98.7 F 87 18 94/59 100 04/06/19 05:25 04/06/19 05:25 04/06/19 05:25 04/06/19 05:25 04/06/19 05:25 General appearance: Present: no acute distress, other (ill-looking) Results - Labs CBC & Chem 7: 04/06/19 06:58 04/06/19 06:58 Labs: Laboratory Last Values WBC 5.7 K/mm3 (4.5-11.0) 04/06/19 06:58 RBC 3.61 M/mm3 (3.65-5.03) L 04/06/19 06:58 Hgb 8.6 gm/dl (10.1-14.3) L 04/06/19 06:58 Hct 26.4 % (30.3-42.9) L 04/06/19 06:58 MCV 73 fl (79-97) L 04/06/19 06:58 MCH 24 pg (28-32) L 04/06/19 06:58 MCHC 33 % (30-34) 04/06/19 06:58 RDW 22.4 % (13.2-15.2) H 04/06/19 06:58 Plt Count 257 K/mm3 (140-440) 04/06/19 06:58 Lymph % (Auto) 14.3 % (13.4-35.0) 04/06/19 06:58 [place] % (Auto) 12.7 % (0.0-7.3) H 04/06/19 06:58 Eos % (Auto) 7.7 % (0.0-4.3) H 04/06/19 06:58 Baso % (Auto) 0.6 % (0.0-1.8) 04/06/19 06:58 Lymph # 0.8 K/mm3 (1.2-5.4) L 04/06/19 06:58 [place] # 0.7 K/mm3 (0.0-0.8) 04/06/19 06:58 Eos # 0.4 K/mm3 (0.0-0.4) 04/06/19 06:58 Baso # 0.0 K/mm3 (0.0-0.1) 04/06/19 06:58 Seg Neutrophils % 64.7 % (40.0-70.0) 04/06/19 06:58 Seg Neutrophils # 3.7 K/mm3 (1.8-7.7) 04/06/19 06:58 VBG pH 7.259 (7.320-7.420) L 04/04/19 23:29 Sodium 143 mmol/L (137-145) D 04/06/19 06:58 Potassium 3.1 mmol/L (3.6-5.0) L D 04/06/19 06:58 Chloride 113.0 mmol/L (98-107) H 04/06/19 06:58 Carbon Dioxide 18 mmol/L (22-30) L 04/06/19 06:58 Anion Gap 15 mmol/L 04/06/19 06:58 BUN 2 mg/dL (7-17) L 04/06/19 06:58 Creatinine 0.5 mg/dL (0.7-1.2) L 04/06/19 06:58 Estimated GFR > 60 ml/min 04/06/19 06:58 BUN/Creatinine Ratio 4 % 04/06/19 06:58 Glucose 70 mg/dL (65-100) 04/06/19 06:58 POC Glucose 89 (70-105) 04/05/19 20:56 Lactic Acid 1.00 mmol/L (0.7-2.0) 04/05/19 03:19 Calcium 7.4 mg/dL (8.4-10.2) L 04/06/19 06:58 Total Bilirubin 0.60 mg/dL (0.1-1.2) 04/04/19 23:29 AST 74 units/L (5-40) H 04/04/19 23:29 ALT 16 units/L (7-56) 04/04/19 23:29 Alkaline Phosphatase 58 units/L (35-129) 04/04/19 23:29 Total Protein 6.7 g/dL (6.3-8.2) 04/04/19 23:29 Albumin 2.8 g/dL (3.9-5) L 04/04/19 23:29 Albumin/Globulin Ratio 0.7 % 04/04/19 23:29 Lipase 19 units/L (13-60) 04/04/19 23:29 HCG, Qual Negative (Negative) 04/04/19 23:29 Urine Color Yellow (Yellow) 04/05/19 02:04 Urine Turbidity Slightly-cloudy (Clear) 04/05/19 02:04 Urine pH 6.0 (5.0-7.0) 04/05/19 02:04 Ur Specific [place] 1.018 (1.003-1.030) 04/05/19 02:04 Urine Protein 100 mg/dl mg/dL (Negative) 04/05/19 02:04 Urine Glucose (UA) 150 mg/dL (Negative) 04/05/19 02:04 Urine Ketones 20 mg/dL (Negative) 04/05/19 02:04 Urine Blood Lg (Negative) 04/05/19 02:04 Urine Nitrite Neg (Negative) 04/05/19 02:04 Urine Bilirubin Neg (Negative) 04/05/19 02:04 Urine Urobilinogen < 2.0 mg/dL (<2.0) 04/05/19 02:04 Ur Leukocyte Esterase Neg (Negative) 04/05/19 02:04 Urine WBC (Auto) 2.0 /HPF (0.0-6.0) 04/05/19 02:04 Urine RBC (Auto) 7.0 /HPF (0.0-6.0) 04/05/19 02:04 U Epithel Cells (Auto) < 1.0 /HPF (0-13.0) 04/05/19 02:04 Urine Bacteria (Auto) 1+ /HPF (Negative) 04/05/19 02:04 Hyaline Casts 1 /LPF 04/05/19 02:04 Urine Mucus Few /HPF 04/05/19 02:04 CSF Appearance Clear 04/05/19 04:15 CSF Color Colorless 04/05/19 04:15 CSF WBC 14 /mm3 (1-10) 04/05/19 04:15 CSF RBC 41 /mm3 (0-0) 04/05/19 04:15 CSF Seg Neutrophils 60.6 % (0-6) 04/05/19 04:15 CSF Lymphocytes % 36.4 % (40-80) 04/05/19 04:15 CSF Reactive Lymphs 0 % 04/05/19 04:15 CSF Monocytes % 0 % (15-45) 04/05/19 04:15 CSF Eosinophils % 3.0 % 04/05/19 04:15 CSF Basophils 0 % 04/05/19 04:15 CSF Pathologist Review C 04/05/19 04:15 CSF Glucose 69 mg/dL 04/05/19 04:15 CSF Total Protein 52 mg/dL 04/05/19 04:15 Urine Opiates Screen Presumptive negative 04/05/19 02:04 Urine Methadone Screen Presumptive negative 04/05/19 02:04 Ur Barbiturates Screen Presumptive negative 04/05/19 02:04 Ur Phencyclidine Scrn Presumptive negative 04/05/19 02:04 Ur Amphetamines Screen Presumptive negative 04/05/19 02:04 U Benzodiazepines Scrn Presumptive negative 04/05/19 02:04 Urine Cocaine Screen Presumptive negative 04/05/19 02:04 U Marijuana (THC) Screen Presumptive positive 04/05/19 02:04 Drugs of Abuse Note Disclamer 04/05/19 02:04 Enterovirus (PCR) Cmmt 04/05/19 04:15 HIV 1&2 Antibody Rapid Non react (Non React) 04/05/19 06:00 HIV P24 Antigen Non react (Non React) 04/05/19 06:00 Influenza A (Rapid) Negative (Negative) 04/04/19 22:00 Influenza B (Rapid) Negative (Negative) 04/04/19 22:00 Blood Type O POSITIVE 04/05/19 01:33 Antibody Screen Negative 04/05/19 01:33 Crossmatch See Detail 04/05/19 01:33 Active Medications - Current Medications Current Medications: Generic Name Dose Route Start Last Admin Trade Name Freq PRN Reason Stop Dose Admin Acetaminophen 650 mg 04/05/19 09:29 04/06/19 00:29 Tylenol PO 650 mg Q4H PRN Administration Pain MILD(1-3)/Fever >100.5/INMAN Dextrose 50 ml 04/05/19 09:39 D50w (25gm) Syringe IV Q30MIN PRN Hypoglycemia Protocol Acyclovir 540 mg/ Sodium 110.8 mls @ 100 mls/hr 04/05/19 06:00 04/06/19 05:43 Chloride IV 100 mls/hr Q8HR RABIA Administration Protocol Ceftriaxone Sodium 2 gm in 100 mls @ 200 mls/hr 04/06/19 10:00 Rocephin/Ns 2 Gm/100 Ml IV DAILY RABIA Protocol Vancomycin HCl 1 gm in 250 mls @ 166.667 mls/hr 04/05/19 17:00 04/06/19 04:17 Vancomycin/Ns 1 Gm/250 Ml IV 166.667 mls/hr Q12H RABIA Administration Dextrose/Sodium Chloride 1,000 mls @ 125 mls/hr 04/05/19 16:00 04/05/19 15:58 D5ns IV 125 mls/hr DIRECT RABIA Administration Ondansetron HCl 4 mg 04/05/19 09:29 Zofran IV Q8H PRN Nausea And Vomiting Oxycodone/Acetaminophen 1 tab 04/05/19 09:29 Percocet 5/325 PO Q6H PRN Pain, Moderate (4-6) Sodium Chloride 10 ml 04/05/19 10:00 04/06/19 00:26 Sodium Chloride Flush Syringe 10 Ml IV 10 ml BID RABIA Administration Sodium Chloride 10 ml 04/05/19 09:29 Sodium Chloride Flush Syringe 10 Ml IV PRN PRN LINE FLUSH
[2019-04-06] MEDS ORDERED: POTASSIUM CHLORIDE ER 20 MEQ TAB PO ONE (08:35)
[2019-04-06] MEDS ORDERED: cefTRIAXone/NS 2 GM/100 ML 2 GM/100 ML BAG IV SCH ×2 (10:00→16:00)
--- NOTE | 2019-04-06 11:13 | Consultation ---
History of Present Illness - Reason for Consult Consult date: 04/06/19 SIRS Requesting physician: MARIOLA ALCANTAR - History of Present Illness 28 y/o female with no medical history except for heavy periods admitted on04/04/2019 brought by EMS after been found unresponsive on her room floor, per mother likely after 5 hours. She has been c/o "cold symptoms" for 3 days. patient is unable to provide history due to AMS now better but she does not remember any details. Per mom, he has been having frontal headaches, n/v, fever with chills, poor oral intake and generalized weakness with bodyaches for 3 days. Per EMS, her blood glucose was 18 mg/dl on arrival. In the ED, temp 103, HR 103, R 24, BP 55/39, O2 100%. WBC 6. Hg 6.4. Plat 253. Creat 0.6. Lactate 4.6. AST 74. UA negative. UDS +marihuana. Blood culture 04/04/2019 no growth today. Urine culture 04/05/2019 no growth. CXR neg. Abd CT small amount of pericholecystic fluid. RUQ US negative. CSF with wbc 14, S60%, glucose 69, protein 52. HIV negative. Influenza rapid negative. ID consulted for presumed meningitis. Review of Systems: positive in bold print General: fever, chills, generalized weakness no malaise Cutaneous: rash, pruritus Head: headaches or injury Eyes: changes in vision, eye pain, double vision Ears: ear pain, ear discharge, ringing or hearing loss Nose: nose bleeding, stuffiness Mouth & throat: bleeding gums, horseness, no dental problems, or swollen glands Neck: no pain, node enlargement/lumps, tyroid enlargement or tenderness Respiratory: SOB, cough, GARCIA, wheezing, sputum, hemoptysis, pleuritic chest pain Cardiovascular: chest pain, leg edema, cyanosis, GARCIA, orthopnea Musculoskeletal: edema Gastrointestinal: nausea, vomiting, hematemesis, diarrhea, constipation, melena, bright red blood in stools, fecal incontinence, jaundice Genitourinary/Reproductive: frequent urination, dysuria, hematuria, incontinence Neurogical: seizures, headaches, weakness, paresthesias, loss of speech or vision; memory loss, vertigo, tremors, numbness Psychiatric: stable mood; excessive anxiety, sadness or moodiness Past History Past Medical History: No medical history Past Surgical History: No surgical history Social history: no significant social history (negative for tobacco, alcohol or illicit drug use) Family history: hypertension (parents) Medications and Allergies Allergies Allergy/AdvReac Type Severity Reaction Status Date / Time No Known Allergies Allergy Verified 04/04/19 23:08 Active Meds: Active Medications Acetaminophen (Tylenol) 650 mg PO Q4H PRN PRN Reason: Pain MILD(1-3)/Fever >100.5/INMAN Last Admin: 04/06/19 00:29 Dose: 650 mg Documented by: Dextrose (D50w (25gm) Syringe) 50 ml IV Q30MIN PRN; Protocol PRN Reason: Hypoglycemia Acyclovir 540 mg/ Sodium (Chloride) 110.8 mls @ 100 mls/hr IV Q8HR RABIA; Protocol Last Admin: 04/06/19 05:43 Dose: 100 mls/hr Documented by: Ceftriaxone Sodium (Rocephin/Ns 2 Gm/100 Ml) 2 gm in 100 mls @ 200 mls/hr IV DAILY RABIA; Protocol Last Admin: 04/06/19 09:47 Dose: 200 mls/hr Documented by: Vancomycin HCl (Vancomycin/Ns 1 Gm/250 Ml) 1 gm in 250 mls @ 166.667 mls/hr IV Q12H RABIA Last Admin: 04/06/19 04:17 Dose: 166.667 mls/hr Documented by: Dextrose/Sodium Chloride (D5ns) 1,000 mls @ 125 mls/hr IV DIRECT RABIA Last Admin: 04/05/19 15:58 Dose: 125 mls/hr Documented by: Ondansetron HCl (Zofran) 4 mg IV Q8H PRN PRN Reason: Nausea And Vomiting Oxycodone/Acetaminophen (Percocet 5/325) 1 tab PO Q6H PRN PRN Reason: Pain, Moderate (4-6) Sodium Chloride (Sodium Chloride Flush Syringe 10 Ml) 10 ml IV BID RABIA Last Admin: 04/06/19 09:47 Dose: 10 ml Documented by: Sodium Chloride (Sodium Chloride Flush Syringe 10 Ml) 10 ml IV PRN PRN PRN Reason: LINE FLUSH Physical Examination - Physical Exam Narrative exam: General appearance: Alert in NAD Eyes: anicteric sclerae, moist conjunctivae; no lid-lag; PERRLA HENT: Atraumatic; oropharynx clear with moist mucous membranes and no mucosal ulcerations/no oral thrush; normal hard and soft palate. Lungs: CTA, with normal respiratory effort and no intercostal retractions CV: RRR no murmur Abdomen: Soft, non-tender; no masses or hepatosplenomegaly Extremities: no edema, no cyanosis Skin: No rash. Psych: Appropriate affect, alert and oriented to person, place and time. Neuro: alert and oriented x 3. Moving all extermities - Constitutional Vitals: Vital Signs Temp Pulse Resp BP Pulse Ox 98.7 F 87 18 94/59 100 04/06/19 05:25 04/06/19 05:25 04/06/19 05:25 04/06/19 05:25 04/06/19 05:25 Temperature -Last 24 Hours Temperature 98.7 F Temperature 99.3 F Temperature 99.5 F Temperature 99.9 F Temperature 99.9 F Temperature 100.1 F Temperature 99.9 F Temperature 100.1 F Temperature 100.1 F Temperature 100.4 F Temperature 100.4 F Temperature 100.5 F Temperature 100.5 F Temperature 97.5 F Temperature 98.5 F Temperature 97.2 F Temperature 98.4 F Temperature 98.6 F Temperature 98.9 F Temperature 98.8 F Temperature 98.4 F Temperature 98.4 F Temperature 98.4 F Results - Labs CBC & Chem 7: 04/06/19 06:58 04/06/19 06:58 Labs: Abnormal lab results 04/05/19 04/05/19 04/05/19 Range/Units 01:33 16:49 17:52 RBC (3.65-5.03) M/mm3 Hgb (10.1-14.3) gm/dl Hct (30.3-42.9) % MCV (79-97) fl MCH (28-32) pg RDW (13.2-15.2) % [place] % (Auto) (0.0-7.3) % Eos % (Auto) (0.0-4.3) % Lymph # (1.2-5.4) K/mm3 Potassium (3.6-5.0) mmol/L Chloride (98-107) mmol/L Carbon Dioxide (22-30) mmol/L BUN (7-17) mg/dL Creatinine (0.7-1.2) mg/dL POC Glucose 58 L 168 H (70-105) Calcium (8.4-10.2) mg/dL Crossmatch See Detail 04/06/19 04/06/19 Range/Units 06:58 06:58 RBC 3.61 L (3.65-5.03) M/mm3 Hgb 8.6 L (10.1-14.3) gm/dl Hct 26.4 L (30.3-42.9) % MCV 73 L (79-97) fl MCH 24 L (28-32) pg RDW 22.4 H (13.2-15.2) % [place] % (Auto) 12.7 H (0.0-7.3) % Eos % (Auto) 7.7 H (0.0-4.3) % Lymph # 0.8 L (1.2-5.4) K/mm3 Potassium 3.1 L D (3.6-5.0) mmol/L Chloride 113.0 H (98-107) mmol/L Carbon Dioxide 18 L (22-30) mmol/L BUN 2 L (7-17) mg/dL Creatinine 0.5 L (0.7-1.2) mg/dL POC Glucose (70-105) Calcium 7.4 L (8.4-10.2) mg/dL Crossmatch Assessment and Plan Cultures: Blood culture 04/04/2019 no growth today. Urine culture 04/05/2019 no growth. Assessment: 28 y/o female with no medical history except for heavy periods admitted on04/04/2019 brought by EMS after been found unresponsive on her room floor, per mother likely after 5 hours. She has been c/o "cold symptoms" for 3 days.- frontal headaches, n/v, fever with chills, poor oral intake and generalized weakness with bodyaches for 3 days: 1) SIRS: present on admission with fever, tachycardia, hypotension, elevated lactate; source ?unclear ? febrile viral illness ? influenza ? mononucleosis ?adenovirus. CSF minimal pleocytosis, normal glucose and protein. Doubt meningitis. UA negative. Blood cx negative. CXR negative. Influenza rapid negative. AST 74. UDS +marihuana.Abd CT small amount of pericholecystic fluid. RUQ US negative. HIV negative. Recommendations: stop vancomycin add tamiflu until flu PCR is negative continue ceftriaxone will stop soon continue acyclovir however doubt HSV meningitis f/u CSF HSV PCR and enterovirus PCR check CMV/EBV serology and PCR Will follow. Tricia Diaz MD Infectious Diseases Litigation Secretary [facility] M [phone] O [phone]
[2019-04-06] MEDS: D5W/0.9% NACL 1,000 ML IV SCH ×2 (11:58→20:29)
[2019-04-06] MEDS: OSELTAMIVIR 75 MG CAP PO SCH ×2 (15:53→22:18)
[2019-04-07] MEDS ORDERED: cefTRIAXone/NS 2 GM/100 ML 2 GM/100 ML BAG IV SCH (04:00)
[2019-04-07] MEDS: ACYCLOVIR IV SCH (05:10)
[2019-04-07] MEDS: SODIUM CHLORIDE 0.9% IV SCH (05:10)
--- NOTE | 2019-04-07 09:20 | Ultrasound Report ---
ULTRASOUND PELVIS COMPLETE ULTRASOUND TRANSVAGINAL INDICATION / CLINICAL INFORMATION: menorrhagia. TECHNIQUE: Transabdominal and Transvaginal. Duplex Color Doppler used: Yes. COMPARISON: CT abdomen pelvis with contrast dated 04/05/2019. FINDINGS: UTERUS: The uterus is anteverted and measures 8.1 x 3.9 x 4.8 cm. No uterine fibroid disease is detec elyssa. The endometrial stripe measures 9 mm. No discrete abnormality. RIGHT ADNEXA: 2 small simple cysts are identified in the right ovary measuring 1.1 and 1.6 cm. Normal color Doppler blood flow. 4.1 x 1.7 x 3.1 cm. LEFT ADNEXA: No significant ovarian cyst or mass. Normal color Doppler blood flow. 3.0 x 1.4 x 2.5 cm . URINARY BLADDER: No significant abnormality. FREE FLUID: None. ADDITIONAL FINDINGS: None. IMPRESSION: Small right ovarian cysts as described. Otherwise, unremarkable exam. Signer Name: Eduard Mcclain Jr, MD Signed: 04/07/2019 9:15 AM Workstation Name: [id number]
--- NOTE | 2019-04-07 11:23 | Progress Note ---
Assessment and Plan Assessment and plan: AMS per mother History of present illness: Ms Godoy is a 28-year-old female who presented to the ED via EMS for ams after 3 days h/o of flu like symptoms. Pt was unable to provide hx due to AMS, so hx was obtained from the mother. It was reported that she has been having n/v, fever with chills, poor oral intake and generalized weakness with bodyaches for 3 days. Per EMS, her blood glucose [id number] on arrival and increased to 155mg/dl after iv d50w was given. Of note, the mother reported that she usually has heavy periods and she's currently menstruating. SIRS evidenced by T: 103F, HR>90 and RR>20 with AMS -s/p LP: CSF analysis not indicative of bacterial inf ID input appreciated, meningitis extremely unlikely. Discontinue antibiotics. -UDS was positive for marijuana, may be due to drug use Acute toxic encephalopathy Due to marijuana abuse, patient counseled on cessation Dragon prevention Acute blood loss anemia Due to menorrhagia, [employer] consulted. She was noted to have heterogeneous uterus, but she refused pelvic MRI. Outpatient [employer] follow-up Hypotension Likely due to dehydration and anemia. Now resolved. Mild hyponatremia Resolved with IV fluids Metabolic acidosis/lactic acidosis Likely due to Sirs, now resolved Hypoglycemia was due to poor p.o. intake. She is not a diabetic Hypoalbuminemia -nutrition consulted DVT ppx: SCD History Interval history: Complains of generalized weakness, headache and back pain which began after LP Review of systems Constitutional: No fevers, , no joint pains CVS: No chest pain, no orthopnea, no pedal edema GI: No abdominal pain, no diarrhea, no vomiting, no constipation Respiratory: , no wheezing, no coughing Hospitalist Physical - Physical exam Narrative exam: General appearance: Appears well - EENT Eyes: Present: PERRL, EOM intact ENT: hearing intact, other (dry buccal mucosa) - Neck Neck: Present: supple - Respiratory Respiratory effort: normal Respiratory: bilateral: CTA - Cardiovascular Rhythm: regular Heart Sounds: Present: S1 & S2 - Extremities Extremities: No edema - Abdominal General gastrointestinal: Present: soft, non-tender, non-distended, normal bowel sounds Female genitourinary: Present: deferred - Rectal Rectal Exam: deferred - Integumentary Integumentary: Present: pale - Musculoskeletal Musculoskeletal: Strength equal on both sides, - Psychiatric Psychiatric: cooperative - Neurologic Neurologic: No acute findings, no focal weakness - Constitutional Vitals: Temp Pulse Resp BP Pulse Ox 98.3 F 89 18 111/65 99 04/07/19 04:33 04/07/19 04:33 04/07/19 04:33 04/07/19 04:33 04/07/19 04:33 General appearance: Present: no acute distress, other (ill-looking) Results - Labs CBC & Chem 7: 04/06/19 06:58 04/06/19 06:58 Labs: Laboratory Last Values WBC 5.7 K/mm3 (4.5-11.0) 04/06/19 06:58 RBC 3.61 M/mm3 (3.65-5.03) L 04/06/19 06:58 Hgb 8.6 gm/dl (10.1-14.3) L 04/06/19 06:58 Hct 26.4 % (30.3-42.9) L 04/06/19 06:58 MCV 73 fl (79-97) L 04/06/19 06:58 MCH 24 pg (28-32) L 04/06/19 06:58 MCHC 33 % (30-34) 04/06/19 06:58 RDW 22.4 % (13.2-15.2) H 04/06/19 06:58 Plt Count 257 K/mm3 (140-440) 04/06/19 06:58 Lymph % (Auto) 14.3 % (13.4-35.0) 04/06/19 06:58 [place] % (Auto) 12.7 % (0.0-7.3) H 04/06/19 06:58 Eos % (Auto) 7.7 % (0.0-4.3) H 04/06/19 06:58 Baso % (Auto) 0.6 % (0.0-1.8) 04/06/19 06:58 Lymph # 0.8 K/mm3 (1.2-5.4) L 04/06/19 06:58 [place] # 0.7 K/mm3 (0.0-0.8) 04/06/19 06:58 Eos # 0.4 K/mm3 (0.0-0.4) 04/06/19 06:58 Baso # 0.0 K/mm3 (0.0-0.1) 04/06/19 06:58 Seg Neutrophils % 64.7 % (40.0-70.0) 04/06/19 06:58 Seg Neutrophils # 3.7 K/mm3 (1.8-7.7) 04/06/19 06:58 VBG pH 7.259 (7.320-7.420) L 04/04/19 23:29 Sodium 143 mmol/L (137-145) D 04/06/19 06:58 Potassium 3.1 mmol/L (3.6-5.0) L D 04/06/19 06:58 Chloride 113.0 mmol/L (98-107) H 04/06/19 06:58 Carbon Dioxide 18 mmol/L (22-30) L 04/06/19 06:58 Anion Gap 15 mmol/L 04/06/19 06:58 BUN 2 mg/dL (7-17) L 04/06/19 06:58 Creatinine 0.5 mg/dL (0.7-1.2) L 04/06/19 06:58 Estimated GFR > 60 ml/min 04/06/19 06:58 BUN/Creatinine Ratio 4 % 04/06/19 06:58 Glucose 70 mg/dL (65-100) 04/06/19 06:58 POC Glucose 83 (70-105) 04/07/19 07:48 Hemoglobin A1c 4.7 % (4-6) 04/06/19 06:58 Lactic Acid 1.00 mmol/L (0.7-2.0) 04/05/19 03:19 Calcium 7.4 mg/dL (8.4-10.2) L 04/06/19 06:58 Total Bilirubin 0.60 mg/dL (0.1-1.2) 04/04/19 23:29 AST 74 units/L (5-40) H 04/04/19 23:29 ALT 16 units/L (7-56) 04/04/19 23:29 Alkaline Phosphatase 58 units/L (35-129) 04/04/19 23:29 Total Protein 6.7 g/dL (6.3-8.2) 04/04/19 23:29 Albumin 2.8 g/dL (3.9-5) L 04/04/19 23:29 Albumin/Globulin Ratio 0.7 % 04/04/19 23:29 Lipase 19 units/L (13-60) 04/04/19 23:29 HCG, Qual Negative (Negative) 04/04/19 23:29 Urine Color Yellow (Yellow) 04/05/19 02:04 Urine Turbidity Slightly-cloudy (Clear) 04/05/19 02:04 Urine pH 6.0 (5.0-7.0) 04/05/19 02:04 Ur Specific [place] 1.018 (1.003-1.030) 04/05/19 02:04 Urine Protein 100 mg/dl mg/dL (Negative) 04/05/19 02:04 Urine Glucose (UA) 150 mg/dL (Negative) 04/05/19 02:04 Urine Ketones 20 mg/dL (Negative) 04/05/19 02:04 Urine Blood Lg (Negative) 04/05/19 02:04 Urine Nitrite Neg (Negative) 04/05/19 02:04 Urine Bilirubin Neg (Negative) 04/05/19 02:04 Urine Urobilinogen < 2.0 mg/dL (<2.0) 04/05/19 02:04 Ur Leukocyte Esterase Neg (Negative) 04/05/19 02:04 Urine WBC (Auto) 2.0 /HPF (0.0-6.0) 04/05/19 02:04 Urine RBC (Auto) 7.0 /HPF (0.0-6.0) 04/05/19 02:04 U Epithel Cells (Auto) < 1.0 /HPF (0-13.0) 04/05/19 02:04 Urine Bacteria (Auto) 1+ /HPF (Negative) 04/05/19 02:04 Hyaline Casts 1 /LPF 04/05/19 02:04 Urine Mucus Few /HPF 04/05/19 02:04 CSF Appearance Clear 04/05/19 04:15 CSF Color Colorless 04/05/19 04:15 CSF WBC 14 /mm3 (1-10) 04/05/19 04:15 CSF RBC 41 /mm3 (0-0) 04/05/19 04:15 CSF Seg Neutrophils 60.6 % (0-6) 04/05/19 04:15 CSF Lymphocytes % 36.4 % (40-80) 04/05/19 04:15 CSF Reactive Lymphs 0 % 04/05/19 04:15 CSF Monocytes % 0 % (15-45) 04/05/19 04:15 CSF Eosinophils % 3.0 % 04/05/19 04:15 CSF Basophils 0 % 04/05/19 04:15 CSF Pathologist Review C 04/05/19 04:15 CSF Glucose 69 mg/dL 04/05/19 04:15 CSF Total Protein 52 mg/dL 04/05/19 04:15 Urine Opiates Screen Presumptive negative 04/05/19 02:04 Urine Methadone Screen Presumptive negative 04/05/19 02:04 Ur Barbiturates Screen Presumptive negative 04/05/19 02:04 Ur Phencyclidine Scrn Presumptive negative 04/05/19 02:04 Ur Amphetamines Screen Presumptive negative 04/05/19 02:04 U Benzodiazepines Scrn Presumptive negative 04/05/19 02:04 Urine Cocaine Screen Presumptive negative 04/05/19 02:04 U Marijuana (THC) Screen Presumptive positive 04/05/19 02:04 Drugs of Abuse Note Disclamer 04/05/19 02:04 Enterovirus (PCR) Cmmt 04/05/19 04:15 HIV 1&2 Antibody Rapid Non react (Non React) 04/05/19 06:00 HIV P24 Antigen Non react (Non React) 04/05/19 06:00 Influenza A (Rapid) Negative (Negative) 04/04/19 22:00 Influenza A (RT-PCR) Negative (Negative) 04/06/19 16:00 Influenza B (Rapid) Negative (Negative) 04/04/19 22:00 Influenza B (RT-PCR) Negative (Negative) 04/06/19 16:00 Blood Type O POSITIVE 04/05/19 01:33 Antibody Screen Negative 04/05/19 01:33 Crossmatch See Detail 04/05/19 01:33 Active Medications - Current Medications Current Medications: Generic Name Dose Route Start Last Admin Trade Name Freq PRN Reason Stop Dose Admin Acetaminophen 650 mg 04/05/19 09:29 04/06/19 00:29 Tylenol PO 650 mg Q4H PRN Administration Pain MILD(1-3)/Fever >100.5/INMAN Dextrose 50 ml 04/05/19 09:39 D50w (25gm) Syringe IV Q30MIN PRN Hypoglycemia Protocol Acyclovir 540 mg/ Sodium 110.8 mls @ 100 mls/hr 04/05/19 06:00 04/07/19 05:10 Chloride IV 100 mls/hr Q8HR RABIA Administration Protocol Dextrose/Sodium Chloride 1,000 mls @ 125 mls/hr 04/05/19 16:00 04/06/19 20:29 D5ns IV 125 mls/hr DIRECT RABIA Administration Ceftriaxone Sodium 2 gm in 100 mls @ 200 mls/hr 04/07/19 04:00 04/07/19 03:23 Rocephin/Ns 2 Gm/100 Ml IV 200 mls/hr 0400,1600 RABIA Administration Ondansetron HCl 4 mg 04/05/19 09:29 Zofran IV Q8H PRN Nausea And Vomiting Oseltamivir Phosphate 75 mg 04/06/19 16:00 04/06/19 22:18 Tamiflu PO 04/10/19 22:01 75 mg BID RABIA Administration Oxycodone/Acetaminophen 1 tab 04/05/19 09:29 Percocet 5/325 PO Q6H PRN Pain, Moderate (4-6) Sodium Chloride 10 ml 04/05/19 10:00 04/06/19 22:18 Sodium Chloride Flush Syringe 10 Ml IV 10 ml BID RABIA Administration Sodium Chloride 10 ml 04/05/19 09:29 Sodium Chloride Flush Syringe 10 Ml IV PRN PRN LINE FLUSH Nutrition/Malnutrition Assess - Dietary Evaluation Nutrition/Malnutrition Findings: Nutrition Notes Start: 04/06/19 11:17 Freq: Status: Active Protocol: Document 04/06/19 11:17 LP (Rec: 04/06/19 11:21 LP [id number]) Nutrition Notes Need for Assessment generated from: MD Order Initial or Follow up Assessment Current Diagnosis Sepsis Other Pertinent Diagnosis AMS Current Diet Regular Labs/Tests K 3.1 Pertinent Medications D5NS at 125ml/hr Height 5 ft 5 in Weight 53 kg [place] Body Weight (kg) 56.81 BMI 19.4 Intake Prior to Admission Poor Weight Status Appropriate Subjective/Other Information Consult for malnutrition. Pt states not eating well since yesterday. Pt denies wt changes. Pt tried eating small bites this AM. Willing to try suppelement. No signs of malnutrition noted. Burn Absent Trauma Absent Current % PO Poor (25-49%) Minimum of two criteria No physical signs of malnutrition #1 Nutrition Diagnosis Inadequate oral intake Etiology decreased appetite As Evidenced by Signs and Symptoms Pt states not eating for 1 day Is patient on ventilator? No Is Patient Ambulatory and/or Out of Bed Yes REE-([facility]-ambulatory/OOB) [ [id number] [id number]] Calculation Used for Recommendations [facility] Additional Notes Protein needs are 53g (1g/kg) Fluid needs are 1ml/kcal Nutrition Intervention Change Diet Order: Continue regular Add Supplement/Snack (indicate name/kcal Ensure clear apple once daily /protein ) Provides kCal: 240 Provides Protein (gm) 8 Goal #1 Meet at least 80% of kcal and protein needs Anticipated Discharge Needs: Regular diet Follow-Up By: 04/08/19 Additional Comments Follow for intakes and ONS tolerance
[2019-04-07] MEDS: OSELTAMIVIR 75 MG CAP PO SCH (11:51)
--- NOTE | 2019-04-07 13:41 | Progress Note ---
Assessment and Plan Cultures: Blood culture 04/04/2019 no growth Urine culture 04/05/2019 no growth. 04/05/2019 CSF negative HIV negative Influenza negative Assessment: 28 y/o female with no medical history except for heavy periods admitted on 04/04/2019 brought by EMS after been found unresponsive on her room floor, per m other likely after 5 hours. She has been c/o "cold symptoms" for 3 days.- frontal headaches, n/v, fever with chills, poor oral intake and generalized weakness with bodyaches for 3 days: 1) SIRS: present on admission with fever, tachycardia, hypotension, elevated lactate; source ?unclear ? febrile viral illness ?aseptic meningitis. CSF minimal pleocytosis, normal glucose and protein. Back to baseline. UA negative. Blood cx negative. CXR negative. Influenza rapid and PCR negative. AST 74. UDS +marihuana. Abd CT small amount of pericholecystic fluid. RUQ US negative. HIV negative. Clinically doing well and back to baseline. Recommendations: discontinued all antimicrobials f/u in ID clinic for results on pending tests (CSF PCRs, CMV and EBV serologies) Theresa Echeverria MD, FACP [facility] C: [phone] O: [phone] F: [phone] Subjective Date of service: 04/07/19 Interval history: No complaints. Feels well. No fever. Mental status is normal. Objective - Exam Narrative Exam: Physical Exam: Constitutional: Alert, cooperative. No acute distress Head, Ears, Nose: Normocephalic, atraumatic. External ears, nose normal Eyes: Conjunctivae/corneas clear. No icterus. No ptosis. Neck: Supple, no meningeal signs Cardiovascular: S1, S2 normal. Respiratory: Good air entry, clear to auscultation bilaterally GI: Soft, non-tender; bowel sounds normal. No peritoneal signs Musculoskeletal: No pedal edema, no cyanosis. Skin: No rash or abscess Hem/Lymphatic: No palpable cervical or supraclavicular nodes. No lymphangitis Psych: Mood ok. Affect normal Neurological: Awake, alert, oriented. No gross abnormality - Constitutional Vitals: Vital Signs Temp Pulse Resp BP Pulse Ox 99.4 F 84 20 100/74 97 04/07/19 11:23 04/07/19 11:23 04/07/19 11:23 04/07/19 11:23 04/07/19 11:23 Temperature -Last 24 Hours Temperature 99.4 F Temperature 98.3 F Temperature 99.3 F Temperature 99.8 F - Labs CBC & Chem 7: 04/06/19 06:58 04/06/19 06:58 Labs: Abnormal lab results 04/06/19 Range/Units 16:56 POC Glucose 123 H (70-105)
--- NOTE | 2019-04-07 14:31 | Discharge Summary ---
Providers - Providers Date of Admission: 04/05/19 07:51 Attending physician: NKECHI ROE MD 04/05/19 04:14 Consult to Physician [CONS] Stat Comment: Consulting Provider: LAMIN VILLAR Physician Instructions: Reason For Exam: fever, sepsis 04/05/19 15:46 Consult to Dietitian/Nutrition [CONS] Routine Physician Instructions: Reason For Exam: Reason for Consult: Malnutrition Primary care physician: [employer]IC[employer] EXAMINER Hospitalization Condition: Fair Hospital course: Ms Godoy is a 28-year-old female who presented to the ED via EMS for ams after 3 days h/o of flu like symptoms. Pt was unable to provide hx due to AMS, so hx was obtained from the mother. It was reported that she has been having n/v, fever with chills, poor oral intake and generalized weakness with bodyaches for 3 days. Per EMS, her blood glucose qta53ih/dl on arrival and increased to 155mg/dl after iv d50w was given. Of note, the mother reported that she usually has heavy periods and she's currently menstruating. SIRS evidenced by T: 103F, HR>90 and RR>20 with AMS -s/p LP: CSF analysis not indicative of bacterial inf ID input appreciated, meningitis extremely unlikely. Discontinue antibiotics. 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 She was noted to have heterogeneous uterus, but she refused pelvic MRI. Outpatient [employer]ENT PROC[employer]OR follow-up Hypotension Likely due to dehydration and anemia. Now resolved. Mild hyponatremia Resolved with IV fluids Metabolic acidosis/lactic acidosis Likely due to Sirs, now resolved Hypoglycemia was due to poor p.o. intake. She is not a diabetic Hypoalbuminemia/moderate protein calorie malnutrition Received dietitian consult DVT ppx: SCD Disposition: TO HOME OR SELFCARE Time spent for discharge: 35 minutes Core Measure Documentation - Palliative Care Palliative Care/ Comfort Measures: Not Applicable - Core Measures Any of the following diagnoses?: none Exam - Constitutional Vitals: Temp Pulse Resp BP Pulse Ox 99.4 F 84 20 100/74 97 04/07/19 11:23 04/07/19 11:23 04/07/19 11:23 04/07/19 11:23 04/07/19 11:23 General appearance: Present: no acute distress, well-nourished - EENT Eyes: Present: PERRL ENT: hearing intact, clear oral mucosa - Neck Neck: Present: supple, normal ROM - Respiratory Respiratory effort: normal Respiratory: bilateral: CTA - Cardiovascular Heart Sounds: Present: S1 & S2. Absent: rub, click - Extremities Extremities: pulses symmetrical, No edema Peripheral Pulses: within normal limits - Abdominal General gastrointestinal: Present: soft, non-tender, non-distended, normal bowel sounds Female genitourinary: Present: normal - Integumentary Integumentary: Present: clear, warm, dry - Musculoskeletal Musculoskeletal: gait normal, strength equal bilaterally - Psychiatric Psychiatric: appropriate mood/affect, intact judgment & insight - Neurologic Neurologic: CNII-XII intact, moves all extremities Plan Follow up with: PRIMARY CARE,MD [Primary Care Provider] - 3-5 Days Forms: Work/School Release Form Prescriptions: Acetaminophen [Acetaminophen TAB] 650 mg PO Q4H PRN #30 tablet PRN Reason: Pain MILD(1-3)/Fever >100.5/INMAN
[2019-04-07 16:56] VITALS: BP 108/72
== END 2019-04-07 17:35 | disposition home or self-care (01) | DRG 871 ==
LOC: ED 21:51 → 3A 04-05 07:51
PROVIDERS: ADMIT Internal Medicine; ATTEND Internal Medicine
PROC: 30233N1 Transfusion of Nonautologous Red Blood Cells into Peripheral Vein, Percutaneous Approach (ICD-10-PCS; principal; 2019-04-05)
DX: A41.9 Sepsis, unspecified organism (principal); G93.41 Metabolic encephalopathy; D62 Acute posthemorrhagic anemia; E87.1 Hypo-osmolality and hyponatremia; E87.2 Acidosis; E16.2 Hypoglycemia, unspecified; E86.0 Dehydration; Z82.49 Family history of ischemic heart disease and other diseases of the circulatory system
CPT/HCPCS: 36415; 70450; 71045; 74177; 76705; 76830; 76856; 80048; 80053; 80307; 81001; 82140; 82805; 82947; 82962; 83036; 83690; 84160; 84703; 85025; 86592; 86665; 86850; 86900; 86901; 86920; 87040; 87086; 87116; 87400; 87497; 87498; 87799; 87806; 89051; 93005; 93010; G0378; 87502; J0133; J0696; J1200; J2405; J3370; J7030; J7040; J7042; P9016; Q9967